=== PATIENT | male | born 1980 | race Caucasian/White ===

== ENCOUNTER 2020-06-04 12:42 | Emergency (ER) | payer OTHER, SELFPAY ==
[2020-06-04] VITALS (10 sets, daily range): BP systolic 127–152; BP diastolic 67–104; PULSE 73–95; RESP 15–16; TEMP 37.3; O2SAT 97–99; BMI 34.8
[2020-06-04 12:58] LABS: Add Manual Diff / Slide Review NO; Basophils Absolute Auto 100 /uL (0-100); Basophils Percent Auto 0.8 % (0-2); Eosinophils Absolute Auto 300 /uL (0-450); Eosinophils Percent Auto 2.3 % (2-4); Hematocrit 46.1 % (41-53); Hemoglobin 15.8 g/dL (13.5-17.5); Lymphocytes Absolute Auto 1900 /uL (1100-4500); Lymphocytes Percent Auto 16.4 % (25-40); Mean Corpuscular HGB Conc 34.3 % (30-36); Mean Corpuscular Hemoglobin 30.5 PG (26-34); Mean Corpuscular Volume 88.9 fL (80-100); Monocytes Absolute Auto 1200 /uL (0-900); Monocytes Percent Auto 10.9 % (3-14); Neutrophils Absolute Auto 7900 /uL (1500-7000); Neutrophils Percent Auto 69.6 % (50-75); Platelet Count 349 X10^3/uL (150-400); Red Blood Cell Count 5.19 X10^6/uL (4.5-5.9); Red Cell Distribution Width 13.4 % (11.6-14.8); White Blood Cell Count 11.3 X10^3/uL (4.5-11.0)
[2020-06-04 13:05] LABS: Prothrombin Time 11.1 SECONDS (10.1-12.7)
[2020-06-04 13:07] LABS: PTT Partial Thromboplastin Tim 36 SECONDS (26.4-36.2)
[2020-06-04 13:09] LABS: Alanine Aminotransferase 38 IU/L (<50); Albumin 4.8 g/dL (3.5-5.0); Albumin Globulin Ratio 1.3 (1.0-2.8); Alkaline Phosphatase 83 U/L (38-126); Aspartate Aminotransferase 24 IU/L (17-59); BUN Creatinine Ratio 13.7 (6-22); Bilirubin Total 0.8 mg/dL (0.2-1.3); Blood Urea Nitrogen 10 mg/dL (9-20); Calcium 9.7 mg/dL (8.4-10.2); Carbon Dioxide 25 mmol/L (22-32); Chloride 103 mmol/L (98-107); Estimated Glomerular Filt Rate > 60.0 mL/min (>60); Globulin 3.6 g/dL (1.7-4.1); Glucose 99 mg/dL (70-100); HEMOLYSIS < 15 (0-50); Lipase 1122 U/L (23-300); Potassium 4.1 mmol/L (3.4-5.1); Sodium 138 mmol/L (137-145); Total Protein 8.4 g/dL (6.3-8.2)
--- NOTE | 2020-06-04 13:12 | ED.ABDPAIN ---
HPI - Abdominal Pain <CHEY Montesinos - Last Filed: 06/04/20 16:00> General Chief Complaint: Abdominal Pain Stated Complaint: lower left abdominal pain Time Seen by Provider: 06/04/20 12:43 Source: patient Mode of arrival: Ambulatory Limitations: no limitations History of Present Illness HPI narrative: The patient is a 39-year-old male current marijuana user with history of drinking to excess but having for years,appendectomy, chronic low back pain ocular migraine who presents with a chief complaint of left lower abdominal pain since last night. He states it started yesterday, no fevers, nausea vomiting and retching. No chest pain or shortness of breath. States his last bowel movement was 1 hour prior to arrival and normal.. No dysuria urgency or frequency. No testicular pain. Presents as a referral from the walk-in clinic. Related Data Previous Rx's Medication Instructions Recorded ciprofloxacin HCl 500 mg PO BID #20 tab 06/04/20 hydrocodone-acetaminophen [[place]] 1 tab PO Q4-6H PRN #10 tab 06/04/20 metronidazole 500 mg PO TID 10 Days #30 tab 06/04/20 ondansetron 4 mg PO Q6H PRN #20 tab 06/04/20 Allergies Allergy/AdvReac Type Severity Reaction Status Date / Time banana [BANANA] Allergy Mild VOMITING Verified 06/04/20 12:24 VIOLENTLY Review of Systems <MARC Montesinos - Last Filed: 06/04/20 16:00> Review of Systems Narrative: GENERAL: Denies chills, fatigue, malaise, fever, sweats. HEENT: Denies sinus pain, ear pain, sore throat, difficulty swallowing, dizziness. RESPIRATORY: Denies dyspnea, cough, wheezing, hemoptysis, sputum. CARDIOVASCULAR: Denies chest pain, palpitations, orthopnea, edema, GASTROINTESTINAL: See HPI : Denies dysuria, frequency, incontinence, hematuria, urinary retention. MUSCULOSKELETAL: denies weakness, joint pain, or bony pain SKIN: Denies rash, skin lesions, or other NEUROLOGIC: Denies weakness, headache, numbness, change in speech, confusion, seizures, incoordination. PSYCHIATRIC: No concerning psychosocial issues. 12 point review of systems is negative except for those stated above Patient History <CHEY Montesinos - Last Filed: 06/04/20 16:00> Social History Smoking Status: Unknown if ever smoked Smoking Status: Unknown if ever smoked alcohol intake frequency: holidays/special occasions only Substance Use Type: marijuana Exam <CHEY Montesinos - Last Filed: 06/04/20 16:00> Narrative Exam Narrative: GENERAL: This is a well-nourished, well-developed patient, no acute distress HEAD: Atraumatic. Normocephalic. No temporal or scalp tenderness. EYES: Pupils equal round and reactive. Extraocular motions intact. No scleral icterus. No injection or drainage. ENT: Nose without bleeding, purulent drainage or septal hematoma. Throat without erythema, tonsillar hypertrophy or exudate. Uvula midline. Airway patent. NECK: Trachea midline. No JVD or lymphadenopathy. Supple, nontender, no meningeal signs. CARDIOVASCULAR: Regular rate and rhythm without murmurs, gallops, or rubs. RESPIRATORY: Clear to auscultation. Breath sounds equal bilaterally. No wheezes, rales, or rhonchi. GASTROINTESTINAL: Abdomen soft, tenderness to left lower quadrant palpation, nondistended. No hepato-splenomegaly, or palpable masses. No guarding. Active bowel sounds all 4 quadrants. Negative Daniels sign. EXTREMITIES: No clubbing, cyanosis, or edema. No joint tenderness, effusion, or edema noted. BACK: Nontender without deformity or crepitance. No flank tenderness. NEURO: AOx3. SKIN: No rash or erythema on visible skin Initial Vital Signs Initial Vital Signs: Vital Signs Temperature 99.2 F 06/04/20 12:44 Pulse Rate 78 06/04/20 12:44 Respiratory Rate 15 06/04/20 12:44 Blood Pressure 152/104 H 06/04/20 12:44 Pulse Oximetry 97 06/04/20 12:44 <Natalee Nair DO - Last Filed: 06/09/20 07:22> Initial Vital Signs Initial Vital Signs: Vital Signs Temperature 99.2 F 06/04/20 12:44 Pulse Rate 78 06/04/20 12:44 Respiratory Rate 15 06/04/20 12:44 Blood Pressure 152/104 H 06/04/20 12:44 Pulse Oximetry 97 06/04/20 12:44 Scores <MARC MontesinosBC - Last Filed: 06/04/20 16:00> GCS Nicanor coma scale eye opening: Spontaneous [place] coma scale verbal response: Orientated [place] coma scale motor response: Obey commands [place] coma scale total score: 15 Course <Inez MARC HawkinsBC - Last Filed: 06/04/20 16:00> Orders Ordered: Discontinued Medications Ciprofloxacin (Cipro) 500 mg PO NOW ONE Stop: 06/04/20 14:35 Last Admin: 06/04/20 14:42 Dose: 500 mg Documented by: JED Sodium Chloride (Normal Saline 0.9%) 1,000 mls @ 1,000 mls/hr IV BOLUS ONE Stop: 06/04/20 13:57 Last Infusion: 06/04/20 14:52 Dose: 0 mls/hr Documented by: Admin: 06/04/20 13:17 Dose: 1,000 mls/hr Documented by: SCANAPO Sodium Chloride (Normal Saline 0.9%) 1,000 mls @ 1,000 mls/hr IV BOLUS ONE Stop: 06/04/20 15:00 Last Infusion: 06/04/20 15:27 Dose: 0 mls/hr Documented by: Admin: 06/04/20 14:10 Dose: 1,000 mls/hr Documented by: JED Sodium Chloride (Normal Saline 0.9%) 1,000 mls @ 250 mls/hr IV CONT JORDI Metronidazole (Metronidazole) 500 mg PO NOW ONE Stop: 06/04/20 14:35 Last Admin: 06/04/20 14:42 Dose: 500 mg Documented by: JED Ondansetron HCl (Zofran) 4 mg IV NOW ONE Stop: 06/04/20 14:35 Last Admin: 06/04/20 14:42 Dose: 4 mg Documented by: JED Vital Signs Vital signs: Vital Signs - 8 hr 06/04/20 12:44 06/04/20 12:46 06/04/20 13:00 Temperature 99.2 F Pulse Rate 78 75 82 Respiratory Rate 15 Blood Pressure 152/104 H 152/104 H 152/98 H Pulse Oximetry 97 98 97 06/04/20 13:30 06/04/20 14:00 06/04/20 14:30 Temperature Pulse Rate 87 78 80 Respiratory Rate Blood Pressure 133/83 131/87 143/87 H Pulse Oximetry 98 98 99 06/04/20 15:00 06/04/20 15:01 06/04/20 15:30 Temperature Pulse Rate 73 78 95 H Respiratory Rate Blood Pressure 131/67 127/84 Pulse Oximetry 99 98 99 06/04/20 15:35 Temperature Pulse Rate Respiratory Rate 16 Blood Pressure Pulse Oximetry <Natalee Nair, - Last Filed: 06/09/20 07:22> Orders Ordered: Discontinued Medications Ciprofloxacin (Cipro) 500 mg PO NOW ONE Stop: 06/04/20 14:35 Last Admin: 06/04/20 14:42 Dose: 500 mg Documented by: JED Sodium Chloride (Normal Saline 0.9%) 1,000 mls @ 1,000 mls/hr IV BOLUS ONE Stop: 06/04/20 13:57 Last Infusion: 06/04/20 14:52 Dose: 0 mls/hr Documented by: Admin: 06/04/20 13:17 Dose: 1,000 mls/hr Documented by: GERRYAPO Sodium Chloride (Normal Saline 0.9%) 1,000 mls @ 1,000 mls/hr IV BOLUS ONE Stop: 06/04/20 15:00 Last Infusion: 06/04/20 15:27 Dose: 0 mls/hr Documented by: Admin: 06/04/20 14:10 Dose: 1,000 mls/hr Documented by: JED Sodium Chloride (Normal Saline 0.9%) 1,000 mls @ 250 mls/hr IV CONT JORDI Metronidazole (Metronidazole) 500 mg PO NOW ONE Stop: 06/04/20 14:35 Last Admin: 06/04/20 14:42 Dose: 500 mg Documented by: JED Ondansetron HCl (Zofran) 4 mg IV NOW ONE Stop: 06/04/20 14:35 Last Admin: 06/04/20 14:42 Dose: 4 mg Documented by: JED Vital Signs Vital signs: Vital Signs - 8 hr 06/04/20 12:44 06/04/20 12:46 06/04/20 13:00 Temperature 99.2 F Pulse Rate 78 75 82 Respiratory Rate 15 Blood Pressure 152/104 H 152/104 H 152/98 H Pulse Oximetry 97 98 97 06/04/20 13:30 06/04/20 14:00 06/04/20 14:30 Temperature Pulse Rate 87 78 80 Respiratory Rate Blood Pressure 133/83 131/87 143/87 H Pulse Oximetry 98 98 99 06/04/20 15:00 06/04/20 15:01 06/04/20 15:30 Temperature Pulse Rate 73 78 95 H Respiratory Rate Blood Pressure 131/67 127/84 Pulse Oximetry 99 98 99 06/04/20 15:35 Temperature Pulse Rate Respiratory Rate 16 Blood Pressure Pulse Oximetry MDM - Abdominal Pain <FRED Montesinos-BC - Last Filed: 06/04/20 16:00> Lab Data Attestation: I reviewed the patient's lab results. Result diagrams: 06/04/20 12:48 06/04/20 12:48 Labs: Lab Results 06/04/20 06/04/20 06/04/20 Range/Units 12:48 12:48 12:48 WBC 11.3 H (4.5-11.0) X10^3/uL RBC 5.19 (4.5-5.9) X10^6/uL Hgb 15.8 (13.5-17.5) g/dL Hct 46.1 (41-53) % MCV 88.9 (80-100) fL MCH 30.5 (26-34) PG MCHC 34.3 (30-36) % RDW 13.4 (11.6-14.8) % Plt Count 349 (150-400) X10^3/uL Neut % (Auto) 69.6 (50-75) % Lymph % (Auto) 16.4 L (25-40) % Mclean % (Auto) 10.9 (3-14) % Eos % (Auto) 2.3 (2-4) % Baso % (Auto) 0.8 (0-2) % Neut # (Auto) 7900 H (2048-8602) /uL Lymph # (Auto) 1900 (2943-5160) /uL Mclean # (Auto) 1200 H (0-900) /uL Eos # (Auto) 300 (0-450) /uL Baso # (Auto) 100 (0-100) /uL PT 11.1 (10.1-12.7) SECONDS INR 1.0 (0.9-1.3) APTT 36 (26.4-36.2) SECONDS Sodium 138 (137-145) mmol/L Potassium 4.1 (3.4-5.1) mmol/L Chloride 103 (98-107) mmol/L Carbon Dioxide 25 (22-32) mmol/L BUN 10 (9-20) mg/dL Creatinine 0.73 (0.66-1.25) mg/dL Estimated GFR > 60.0 (>60) mL/min BUN/Creatinine Ratio 13.7 (6-22) Glucose 99 (70-100) mg/dL Calcium 9.7 (8.4-10.2) mg/dL Total Bilirubin 0.8 (0.2-1.3) mg/dL AST 24 (17-59) IU/L ALT 38 (<50) IU/L Alkaline Phosphatase 83 (38-126) U/L Total Protein 8.4 H (6.3-8.2) g/dL Albumin 4.8 (3.5-5.0) g/dL Globulin 3.6 (1.7-4.1) g/dL Albumin/Globulin Ratio 1.3 (1.0-2.8) Lipase 1122 H (23-300) U/L COVID-19 PCR (Negative) 06/04/20 Range/Units 14:20 WBC (4.5-11.0) X10^3/uL RBC (4.5-5.9) X10^6/uL Hgb (13.5-17.5) g/dL Hct (41-53) % MCV (80-100) fL MCH (26-34) PG MCHC (30-36) % RDW (11.6-14.8) % Plt Count (150-400) X10^3/uL Neut % (Auto) (50-75) % Lymph % (Auto) (25-40) % Mclean % (Auto) (3-14) % Eos % (Auto) (2-4) % Baso % (Auto) (0-2) % Neut # (Auto) (3169-9003) /uL Lymph # (Auto) (1260-0441) /uL Mclean # (Auto) (0-900) /uL Eos # (Auto) (0-450) /uL Baso # (Auto) (0-100) /uL PT (10.1-12.7) SECONDS INR (0.9-1.3) APTT (26.4-36.2) SECONDS Sodium (137-145) mmol/L Potassium (3.4-5.1) mmol/L Chloride (98-107) mmol/L Carbon Dioxide (22-32) mmol/L BUN (9-20) mg/dL Creatinine (0.66-1.25) mg/dL Estimated GFR (>60) mL/min BUN/Creatinine Ratio (6-22) Glucose (70-100) mg/dL Calcium (8.4-10.2) mg/dL Total Bilirubin (0.2-1.3) mg/dL AST (17-59) IU/L ALT (<50) IU/L Alkaline Phosphatase (38-126) U/L Total Protein (6.3-8.2) g/dL Albumin (3.5-5.0) g/dL Globulin (1.7-4.1) g/dL Albumin/Globulin Ratio (1.0-2.8) Lipase (23-300) U/L COVID-19 PCR Negative (Negative) Point of care testing: Urine Dip Bedside Urine Glucose Negative Bedside Urine Bilirubin - Negative Bedside Urine Ketone ++ 40 Urine Specific [place] 1.015 Bedside Urine Occult Blood - Negative Bedside Urine pH 5.5 Bedside Urine Protein - Negative Bedside Urine Urobilinogen - Negative Bedside Urine Nitrite - Negative Bedside Urine Leukocytes - Negative Esterase Imaging Data CT scan - abdomen/pelvis: Radiologist's Impression: [address] [place] [id number] Scan Report Signed Patient: Wojciech Eaton RMR#: [id number] : 1980Acct:[id number] Age/Sex: 39 / MDate of Service: 06/04/20 Loc: ED Accession Number: [id number] Procedure: CT abdomen pelvis w con Ordering Provider: Inez Hawkins- PROCEDURE: CT ABDOMEN PELVIS W CON INDICATIONS: llq pain, elevated lipase TECHNIQUE: After the administration of intravenous contrast, 5 mm thick sections acquired from the diaphragm to the symphysis. 5 mm coronal and sagittal reformats were acquired. For radiation dose reduction, the following was used: automated exposure control, adjustment of mA and/or kV according to patient size. COMPARISON: [facility], CT, ABDOMEN/PELVIS WITH CONTRAST, 12/11/2010, 4:52. FINDINGS: Image quality: Excellent. ABDOMEN: Lung bases: Lung bases are clear. Heart size is normal. Solid organs: Liver is normal in size and enhancement. Gallbladder appears normal . Biliary system is non dilated. Pancreas enhances normally. Spleen is normal in size and enhancement. No adrenal nodules. Kidneys demonstrate normal size and enhancement, without hydronephrosis. Peritoneum and bowel: Bowel loops demonstrate normal wall thickness and caliber. No free fluid or air. Nodes and vessels: No retroperitoneal or mesenteric adenopathy by size criteria. Aorta and inferior vena cava are normal in size. Miscellaneous: No ventral hernias. PELVIS: Genitourinary: Bladder wall thickness is normal. Miscellaneous: No inguinal hernias or adenopathy. There is acute diverticulitis involving the junction of the descending colon as it transitions to the sigmoid colon, without. Diverticular abscess. Bones: No suspicious bony lesions. No vertebral body compression fractures. IMPRESSION: Acute diverticulitis at the left lower quadrant, without evidence of Talia diverticular abscess formation. Dictated by: Wojciech Zaragoza M.D. on 06/04/2020 at 13:54 Approved by: Wojciech Zaragoza M.D. on 06/04/2020 at 13:56 MDM Narrative Medical decision making narrative: The patient is a 39-year-old male who presents the chief complaint of left lower quadrant pain. His work is grossly normal other than slight leukocytosis and an elevated lipase at over 1100. This is over 3 times the normal limit for lipase indicating the possibility of pancreatitis. CT abdomen pelvis shows diverticulitis with no perforation. Given the combination of the patient's diverticulitis and pancreatitis, I did speak with Dr. Chowdary regarding possibility of admitting the patient. However Dr. Chowdary states that the patient should be able to go home as lipase is nonspecific in the patient's pancreas looked okay on CT. I discussed this at length with the patient that he has strict return precautions the emergency department if you cannot keep down fluids, his medications etcetera. He is okay with this plan, is able to tolerate p.o. Cipro and Flagyl prior to discharge. I discussed at length starting with clear liquid diet, pushing lots of liquids etcetera. Discussed very strict return precautions to the emergency department for any acute concerns as well as the importance of follow-up with primary care provider. Patient was given contact information [facility] health career resource specialist, to help get a PCP. The patient was able to tolerate p.o. fluids in the emergency department. Patient has no questions or concerns upon discharge and states understanding of return precautions as well as follow-up care. He was given a work note for several days off, and strict instructions to come back for any acute concerns. I did discuss not drinking alcohol with his antibiotics during treatment. <Natalee Nair, DO - Last Filed: 06/09/20 07:22> Lab Data Labs: Lab Results 06/04/20 06/04/20 06/04/20 Range/Units 12:48 12:48 12:48 WBC 11.3 H (4.5-11.0) X10^3/uL RBC 5.19 (4.5-5.9) X10^6/uL Hgb 15.8 (13.5-17.5) g/dL Hct 46.1 (41-53) % MCV 88.9 (80-100) fL MCH 30.5 (26-34) PG MCHC 34.3 (30-36) % RDW 13.4 (11.6-14.8) % Plt Count 349 (150-400) X10^3/uL Neut % (Auto) 69.6 (50-75) % Lymph % (Auto) 16.4 L (25-40) % Mclean % (Auto) 10.9 (3-14) % Eos % (Auto) 2.3 (2-4) % Baso % (Auto) 0.8 (0-2) % Neut # (Auto) 7900 H (8737-1016) /uL Lymph # (Auto) 1900 (1630-3262) /uL Mclean # (Auto) 1200 H (0-900) /uL Eos # (Auto) 300 (0-450) /uL Baso # (Auto) 100 (0-100) /uL PT 11.1 (10.1-12.7) SECONDS INR 1.0 (0.9-1.3) APTT 36 (26.4-36.2) SECONDS Sodium 138 (137-145) mmol/L Potassium 4.1 (3.4-5.1) mmol/L Chloride 103 (98-107) mmol/L Carbon Dioxide 25 (22-32) mmol/L BUN 10 (9-20) mg/dL Creatinine 0.73 (0.66-1.25) mg/dL Estimated GFR > 60.0 (>60) mL/min BUN/Creatinine Ratio 13.7 (6-22) Glucose 99 (70-100) mg/dL Calcium 9.7 (8.4-10.2) mg/dL Total Bilirubin 0.8 (0.2-1.3) mg/dL AST 24 (17-59) IU/L ALT 38 (<50) IU/L Alkaline Phosphatase 83 (38-126) U/L Total Protein 8.4 H (6.3-8.2) g/dL Albumin 4.8 (3.5-5.0) g/dL Globulin 3.6 (1.7-4.1) g/dL Albumin/Globulin Ratio 1.3 (1.0-2.8) Lipase 1122 H (23-300) U/L COVID-19 PCR (Negative) 06/04/20 Range/Units 14:20 WBC (4.5-11.0) X10^3/uL RBC (4.5-5.9) X10^6/uL Hgb (13.5-17.5) g/dL Hct (41-53) % MCV (80-100) fL MCH (26-34) PG MCHC (30-36) % RDW (11.6-14.8) % Plt Count (150-400) X10^3/uL Neut % (Auto) (50-75) % Lymph % (Auto) (25-40) % Mclean % (Auto) (3-14) % Eos % (Auto) (2-4) % Baso % (Auto) (0-2) % Neut # (Auto) (8489-6532) /uL Lymph # (Auto) (5289-8381) /uL Mclean # (Auto) (0-900) /uL Eos # (Auto) (0-450) /uL Baso # (Auto) (0-100) /uL PT (10.1-12.7) SECONDS INR (0.9-1.3) APTT (26.4-36.2) SECONDS Sodium (137-145) mmol/L Potassium (3.4-5.1) mmol/L Chloride (98-107) mmol/L Carbon Dioxide (22-32) mmol/L BUN (9-20) mg/dL Creatinine (0.66-1.25) mg/dL Estimated GFR (>60) mL/min BUN/Creatinine Ratio (6-22) Glucose (70-100) mg/dL Calcium (8.4-10.2) mg/dL Total Bilirubin (0.2-1.3) mg/dL AST (17-59) IU/L ALT (<50) IU/L Alkaline Phosphatase (38-126) U/L Total Protein (6.3-8.2) g/dL Albumin (3.5-5.0) g/dL Globulin (1.7-4.1) g/dL Albumin/Globulin Ratio (1.0-2.8) Lipase (23-300) U/L COVID-19 PCR Negative (Negative) Point of care testing: Urine Dip Bedside Urine Glucose Negative Bedside Urine Bilirubin - Negative Bedside Urine Ketone ++ 40 Urine Specific [place] 1.015 Bedside Urine Occult Blood - Negative Bedside Urine pH 5.5 Bedside Urine Protein - Negative Bedside Urine Urobilinogen - Negative Bedside Urine Nitrite - Negative Bedside Urine Leukocytes - Negative Esterase Discharge Plan Departure Patient Disposition: Home Clinical Impression: Diverticulitis Pancreatitis Qualifiers: Chronicity: acute Pancreatitis type: other Acute pancreatitis complication: unspecified Qualified Code(s): K85.80 - Other acute pancreatitis without necrosis or infection Discharge Date/Time: 06/04/20 15:45 Instructions: Pancreatitis (Alternative Therapy), DI for Pancreatitis, DI for Diverticulitis Activity Restrictions/Additional Instructions: Thank you for trusting us with your care today. As discussed your imaging and lab work indicates both diverticulitis and pancreatitis. As discussed, please have a very low threshold of coming back to the emergency department. Please come back to the ER if you cannot keep down fluids or your medications. Please come back to the ER if you feel like you are getting worse. I sent for prescriptions to [facility] in [place]. This included 2 different antibiotics as well as pain medicine and nausea medicine. I suggest taking a probiotic with the antibiotics. I have given you a prescription of a narcotic for pain. Be aware that this can be constipating and sedating. I encouraged taking with a stool softener, pushing fluids and fiber. Do not take and drive, operate heavy machinery, etc. Do not combine it with any other sedating substances such as alcohol. The combination of narcotics and alcohol and/or other sedatives can be lethal. As discussed please follow-up with primary care provider in the next few days. I have given you contact information [facility] career resource specialist. They can help you identify primary care provider I Have given you a note for work. As discussed please do not drink alcohol with the antibiotics. This can make you violently ill. As discussed please follow-up with primary care provider come back to the emergency department for any acute concerns Prescriptions: New ciprofloxacin HCl 500 mg tablet 500 mg PO BID Qty: 20 RF: 0 metronidazole 500 mg tablet 500 mg PO TID 10 Days Qty: 30 RF: 0 ondansetron 4 mg tablet,disintegrating 4 mg PO Q6H PRN (Reason: nausea and vomiting) Qty: 20 RF: 0 hydrocodone-acetaminophen [[place]] 5-325 mg tablet 1 tab PO Q4-6H PRN (Reason: pain) Qty: 10 RF: 0 Referrals: [facility] [Outside] Miscellaneous,Doctor, [Primary Care Provider] - Stand Alone Forms: Work Release Note <Natalee Nair DO - Last Filed: 06/09/20 07:22> Cosign ED Attending Claudette Attestation: I was immediately available in the department for consultation. Documentation has been reviewed. I agree with assessment and plan.
[2020-06-04] MEDS: SODIUM CHLORIDE 0.9% 1,000 ML 1000 ML IV ×2 (13:17→14:10)
--- NOTE | 2020-06-04 13:18 | DI.CT.S_ITS ---
PROCEDURE: CT ABDOMEN PELVIS W CON INDICATIONS: llq pain, elevated lipase TECHNIQUE: After the administration of intravenous contrast, 5 mm thick sections acquired from the diaphragm to the symphysis. 5 mm coronal and sagittal reformats were acquired. For radiation dose reduction, the following was used: automated exposure control, adjustment of mA and/or kV according to patient size. COMPARISON: [facility], CT, ABDOMEN/PELVIS WITH CONTRAST, 12/11/2010, 4:52. FINDINGS: Image quality: Excellent. ABDOMEN: Lung bases: Lung bases are clear. Heart size is normal. Solid organs: Liver is normal in size and enhancement. Gallbladder appears normal . Biliary system is non dilated. Pancreas enhances normally. Spleen is normal in size and enhancement. No adrenal nodules. Kidneys demonstrate normal size and enhancement, without hydronephrosis. Peritoneum and bowel: Bowel loops demonstrate normal wall thickness and caliber. No free fluid or air. Nodes and vessels: No retroperitoneal or mesenteric adenopathy by size criteria. Aorta and inferior vena cava are normal in size. Miscellaneous: No ventral hernias. PELVIS: Genitourinary: Bladder wall thickness is normal. Miscellaneous: No inguinal hernias or adenopathy. There is acute diverticulitis involving the junction of the descending colon as it transitions to the sigmoid colon, without. Diverticular abscess. Bones: No suspicious bony lesions. No vertebral body compression fractures. IMPRESSION: Acute diverticulitis at the left lower quadrant, without evidence of Talia diverticular abscess formation. Dictated by: Wojciech Zaragoza M.D. on 06/04/2020 at 13:54 Approved by: Wojciech Zaragoza M.D. on 06/04/2020 at 13:56
[2020-06-04] MEDS: CIPROFLOXACIN 500 MG TABLET PO (14:42)
[2020-06-04] MEDS: ONDANSETRON 4 MG/2 ML INJ IV (14:42)
[2020-06-04] MEDS: metroNIDAZOLE 250 MG TABLET 500 MG PO (14:42)
[2020-06-04 15:19] LABS: COVID19 -Nasal RAPID Negative (Negative)
== END 2020-06-04 15:45 | disposition home or self-care (01) ==
PROVIDERS: Emergency Provider Nurse Practitioner Family
DX: K57.92 Diverticulitis of intestine, part unspecified, without perforation or abscess without bleeding (principal); K85.80 Other acute pancreatitis without necrosis or infection
CPT/HCPCS: 36415; 74177; 80053; 81003; 83690; 85025; 85610; 85730; 87635; 96361; 96374; 99284; J2405

== ENCOUNTER 2020-11-06 05:50 | Emergency (ER) | payer OTHER, SELFPAY ==
[2020-11-06 05:59] VITALS: BP 132/84; PULSE 87; RESP 23; TEMP 36.5; O2SAT 97; BMI 34.9
--- NOTE | 2020-11-06 06:00 | DI.RAD.S_ITS ---
PROCEDURE: XR CHEST 2V INDICATIONS: right upper back pain, hurts to breathe TECHNIQUE: 2 views of the chest were acquired. COMPARISON: [facility], CT, CT ABDOMEN PELVIS W CON, 06/04/2020, 13:34. FINDINGS: Surgical changes and devices: None. Lungs and pleura: Lungs are clear. No pleural effusions or pneumothorax. Mediastinum: Mediastinal contours are normal. Heart size is normal. Bones and chest wall: No suspicious bony abnormalities. Soft tissues appear unremarkable. IMPRESSION: No acute cardiopulmonary disease. Dictated by: Terri Yarbrough M.D. on 11/06/2020 at 8:13 Approved by: Terri Yarbrough M.D. on 11/06/2020 at 8:14
--- NOTE | 2020-11-06 06:02 | ED_ITS ---
HPI - Back Pain/Injury General Chief Complaint: Back Pain/Injury Stated Complaint: SEVERE PAIN IN BACK Time Seen by Provider: 11/06/20 05:50 Source: patient Mode of arrival: Ambulatory Limitations: no limitations History of Present Illness HPI Narrative: 40-year-old male, smoker of marijuana presents with family friend and the chief complaint of severe sharp and stabbing pain in his right upper back worsening over the past few days. His pain is worse with motion, deep breath, or use of his R arm. He denies any radiation of the pain. He denies any specific injury but states he has been working harder than normal, lifting heavy objects and he is right handed. He denies any shortness of breath, fever or chills. He states he has no history of IV drug abuse and does not use blood thinners. He has taken a few doses of Motrin at home but nothing else. MD Complaint: back pain Onset (ago): day(s) Duration: constant Similar Symptoms Previously: No Location: thoracic spine Severity: severe Quality: sharp Radiation: none Relieving factors: immobilization Exacerbating factors: movement and deep breaths Associated symptoms: denies other symptoms Related Data Previous Rx's Medication Instructions Recorded meclizine 25 mg tablet 25 mg PO TID PRN #30 tab 08/23/20 cyclobenzaprine 10 mg PO TID PRN #14 tab 11/06/20 doxycycline hyclate 100 mg PO BID #20 tab 11/06/20 ketorolac 10 mg PO Q6H PRN #14 tab 11/06/20 lidocaine [Lidoderm] 1 patch TOP DAILY #15 each 11/06/20 Allergies Allergy/AdvReac Type Severity Reaction Status Date / Time banana [BANANA] Allergy Mild VOMITING Verified 08/23/20 13:44 VIOLENTLY Review of Systems Constitutional Constitutional: Denies chills, Denies fatigue, Denies fever(s), Denies frequent falls, Denies lethargy and Denies weakness Eyes Eyes: Denies change in vision, Denies eye discharge, Denies irritation and Denies loss of vision ENT Ears, Nose, Mouth, and Throat: Denies change in voice, Denies dizziness, Denies neck pain, Denies sore throat and Denies throat swelling Cardiovascular Cardiovascular: Denies chest pain, Denies irregular heart rhythm, Denies lightheadedness, Denies palpitations, Denies dyspnea, Denies dyspnea on exertion and Denies orthopnea Respiratory Respiratory: Denies cough, Denies dyspnea, Denies dyspnea on exertion and Denies wheezing Gastrointestinal Gastrointestinal: Denies abdominal pain, Denies change in bowel habits, Denies diarrhea, Denies nausea and Denies vomiting Musculoskeletal Musculoskeletal: Reports back pain, Denies neck pain and Denies numbness Integumentary/Breasts Skin/Breast: Denies pruritus, Denies erythema, Denies rash and Denies wounds Neurologic Neurologic: Denies behavioral changes, Denies confusion, Denies dizziness, Denies frequent falls, Denies loss of vision, Denies numbness and Denies weakness Psychiatric Psychiatric: Denies anxiety, Denies behavioral changes, Denies confusion, Denies depression, Denies homicidal ideation and Denies suicidal ideation Endocrine Endocrine: Denies fatigue, Denies flushing and Denies palpitations Hematologic/Lymphatic Hematologic/Lymphatic: Denies easy bruising Allergic/Immunologic Allergic/Immunologic: Denies urticaria, Denies throat swelling and Denies wheezing Patient History Medical History Finger laceration Social History Smoking Status: Unknown if ever smoked Smoking Status: Unknown if ever smoked alcohol intake frequency: holidays/special occasions only Substance Use Type: marijuana Exam Narrative Exam Narrative: GEN: AOx3 and in mild distress, obviously hurting, self splinting EYES: Pupils are equal, round, and reactive to light and accommodation. Extraoccular muscles are intact bilaterally. There is no subconjunctival hemorrhage or exudate. CHEST: Lungs are clear to auscultation bilaterally and free of wheezes, rales, or rhonchi. Heart rate is regular rhythm, there are no murmurs, clicks, rubs, or gallops. There is no chest wall tenderness. ABD: Abdomen is soft and nontender. There is no guarding or rebound. Bowel sounds are normal in all 4 quadrants. There is no mass or organomegaly. BACK: Reproducible pain in the right upper back he was and 3 lateral to the spine and just inferior to the scapula. Palpable spasm. No midline bony tenderness or step-offs. No crepitance EXT: Full painless ROM of all extremities with no loss of sensation or strength. SKIN: Warm, pink, and dry. No erythema or rash Initial Vital Signs Initial Vital Signs: Vital Signs Temperature 97.7 F 11/06/20 05:59 Pulse Rate 87 11/06/20 05:59 Respiratory Rate 23 11/06/20 05:59 Blood Pressure 132/84 11/06/20 05:59 Pulse Oximetry 97 11/06/20 05:59 Course Orders Ordered: ED Orders 11/06/20 06:00 XR chest 2V Stat Discontinued Medications Hydrocodone Bitart/Acetaminophen (Hydrocodone/Acet 5/325 Prepack) 1 bottle MISC SEEINSTR ONE Stop: 11/06/20 06:36 Last Admin: 11/06/20 06:46 Dose: 1 bottle Documented by: Cyclobenzaprine HCl (Cyclobenzaprine 10 Mg Prepack) 1 bottle MISC SEEINSTR ONE Stop: 11/06/20 06:36 Last Admin: 11/06/20 06:46 Dose: 1 bottle Documented by: Ketorolac Tromethamine (Ketorolac 60 Mg/2 Ml Vial) 30 mg IM NOW ONE Stop: 11/06/20 06:01 Last Admin: 11/06/20 06:08 Dose: 30 mg Documented by: Lidocaine (Lidocaine Patch 1 Each Adh..Patch) 1 each TOP NOW ONE Stop: 11/06/20 06:01 Last Admin: 11/06/20 06:08 Dose: 1 each Documented by: Vital Signs Vital signs: Vital Signs - 8 hr 11/06/20 05:59 Temperature 97.7 F Pulse Rate 87 Respiratory Rate 23 Blood Pressure 132/84 Pulse Oximetry 97 MDM - Back Pain/Injury Imaging Data Chest x-ray: Radiologist's Impression: Prominence of pulmonary interstitium with focal groundglass opacity in RLLL, possible pneumonia Discharge Plan Departure Patient Disposition: Home Clinical Impression: Thoracic back pain Qualifiers: Chronicity: acute Back pain laterality: right Qualified Code(s): M54.6 - Pain in thoracic spine Instructions: DI for Back Spasm Activity Restrictions/Additional Instructions: *You have been diagnosed with [thoracic strain and spasm, chest Xray as read by the radiologist mentions possibly small amount of pneumonia] *What to do: *Take medications as directed: prescriptions sent to [facility] *Follow up with your primary care provider in 2-3 days, call for an appointment. Let them know you were seen in the Emergency Department and that we ask that you be seen in follow up *Return to ER if you should have any new, worsening or concerning symptoms You have been prescribed narcotic medications. While on these medications you cannot drive or operate heavy machinery. Additionally you cannot sign legal documents or perform any duties such as this. 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 Please understand that we cannot provide further refills of narcotics or controlled substances through the ED and your pain management will need to be through your Primary Care Provider Prescriptions: New cyclobenzaprine 10 mg tablet 10 mg PO TID PRN (Reason: muscle spasm) Qty: 14 RF: 0 ketorolac 10 mg tablet 10 mg PO Q6H PRN (Reason: pain) Qty: 14 RF: 0 lidocaine [Lidoderm] 5 % adhesive patch,medicated 1 patch TOP DAILY Qty: 15 RF: 0 doxycycline hyclate 100 mg tablet 100 mg PO BID Qty: 20 RF: 0 No Action meclizine 25 mg tablet 25 mg PO TID PRN (Reason: dizziness) Qty: 30 RF: 0 Referrals: Miscellaneous,Doctor, MD [Primary Care Provider] -
[2020-11-06] MEDS: LIDOCAINE PATCH 1 EACH ADH..PATCH TOP (06:08)
[2020-11-06] MEDS: KETOROLAC 60 MG/2 ML VIAL 30 MG IM (06:08)
[2020-11-06] MEDS: CYCLOBENZAPRINE 10 MG PREPACK 1 BOTTLE MISC (06:46)
[2020-11-06] MEDS: HYDROCODONE/ACET 5/325 PREPACK 1 BOTTLE MISC (06:46)
== END 2020-11-06 06:53 | disposition home or self-care (01) ==
PROVIDERS: Emergency Provider Emergency Medicine
DX: M54.6 Pain in thoracic spine (principal)
CPT/HCPCS: 71046; 96372; 99283; J1885

== ENCOUNTER 2021-05-21 12:18 | Emergency (ER) | payer OTHER, SELFPAY ==
[2021-05-21 12:38] VITALS: BP 142/93; PULSE 86; RESP 22; TEMP 36.9; O2SAT 97; BMI 34.9
[2021-05-21 16:38] VITALS: BP 117/81; PULSE 86; RESP 16; TEMP 36.2; O2SAT 100
[2021-05-21] MEDS: KETOROLAC 30 MG/ML VIAL IM (16:48)
--- NOTE | 2021-05-21 17:04 | ED.BACK ---
HPI - Back Pain/Injury <Enrike Miranda PA-C - Last Filed: 05/21/21 17:27> General Chief Complaint: Back Pain/Injury Stated Complaint: backpain with spasms Source: patient Limitations: no limitations History of Present Illness HPI Narrative: Wojciech presents today with chief complaint of low back pain that is radiating down his left leg that started earlier today while he was at work. He reports that he was lifting some sheetrock and had a twinges low back. He has longstanding history of low back pain that originated during his time in the [employer]. He reports that he has had twinges over the last week but this seems to be the worse. His employer called 911 because he was not able to get up off of the ground due to the pain. His symptoms have since improved. He denies any significant fever, headache changes in bowel or bladder habits, or any other acute concerns or complaints. Related Data Previous Rx's Medication Instructions Recorded meclizine 25 mg tablet 25 mg PO TID PRN #30 tab 08/23/20 cyclobenzaprine 10 mg tablet 10 mg PO TID PRN #14 tab 11/06/20 doxycycline hyclate 100 mg tablet 100 mg PO BID #20 tab 11/06/20 ketorolac 10 mg tablet 10 mg PO Q6H PRN #14 tab 11/06/20 lidocaine 5 % topical patch 1 patch TOP DAILY #15 each 11/06/20 (Lidoderm) Allergies Allergy/AdvReac Type Severity Reaction Status Date / Time banana [BANANA] Allergy Mild VOMITING Verified 05/21/21 12:38 VIOLENTLY Review of Systems <Enrike Miranda PA-C - Last Filed: 05/21/21 17:27> Review of Systems Narrative: As per HPI Patient History <Enrike Miranda PA-C - Last Filed: 05/21/21 17:27> Medical History Finger laceration Social History Smoking Status: Unknown if ever smoked Smoking Status: Unknown if ever smoked alcohol intake frequency: holidays/special occasions only Substance Use Type: marijuana Exam <Enrike Miranda PA-C - Last Filed: 05/21/21 17:27> Narrative Exam Narrative: Exam Narrative: Const General: cooperative, healthy appearing, comfortable, no acute distress, well developed and well groomed Nutritional Appearance: Elevated BMI Orientation: alert and oriented x3 HENMT Head: normal to inspection and atraumatic Ears: hearing grossly normal bilaterally Nose: external nose normal and nares normal Face and sinus: normal facial exam Neck Neck: normal visual inspection and supple Resp Effort & Inspection: normal respiratory effort, able to speak in complete sentences, no audible wheezes, not labored, no nasal flaring and no respiratory distress Neuro General: alert, oriented x3, gait normal, tone normal and moves all extremities Cognition: normal cognition Speech: speech normal Gait: normal gait Musculoskeletal No midline spinal tenderness noted. No SI joint tenderness noted. Bilateral lower lumbar paraspinal muscle tenderness to palpation. Skin No rash or lesions noted. Psych Appearance: grossly normal and well kempt Mental Status: mental status grossly normal Speech and Movement: speech and movement normal Mood: congruent mood Affect: normal affect Initial Vital Signs Initial Vital Signs: Vital Signs Temperature 98.4 F 05/21/21 12:38 Pulse Rate 86 05/21/21 12:38 Respiratory Rate 22 05/21/21 12:38 Blood Pressure 142/93 H 05/21/21 12:38 Pulse Oximetry 97 05/21/21 12:38 <Inez Tuttle DO - Last Filed: 05/28/21 07:36> Initial Vital Signs Initial Vital Signs: Vital Signs Temperature 98.4 F 05/21/21 12:38 Pulse Rate 86 05/21/21 12:38 Respiratory Rate 22 05/21/21 12:38 Blood Pressure 142/93 H 05/21/21 12:38 Pulse Oximetry 97 05/21/21 12:38 Course <Enrike Miranda PA-C - Last Filed: 05/21/21 17:27> Orders Ordered: Discontinued Medications Ketorolac Tromethamine (Ketorolac 30 Mg/Ml Vial) 30 mg IM NOW ONE Stop: 05/21/21 16:45 Last Admin: 05/21/21 16:48 Dose: 30 mg Documented by: IJEOMA Vital Signs Vital signs: Vital Signs - 8 hr 05/21/21 12:38 05/21/21 16:38 Temperature 98.4 F 97.2 F L Pulse Rate 86 86 Respiratory Rate 22 16 Blood Pressure 142/93 H 117/81 Pulse Oximetry 97 100 <Inez Tuttle DO - Last Filed: 05/28/21 07:36> Orders Ordered: Discontinued Medications Ketorolac Tromethamine (Ketorolac 30 Mg/Ml Vial) 30 mg IM NOW ONE Stop: 05/21/21 16:45 Last Admin: 05/21/21 16:48 Dose: 30 mg Documented by: IJEOMA Vital Signs Vital signs: Vital Signs - 8 hr 05/21/21 12:38 05/21/21 16:38 Temperature 98.4 F 97.2 F L Pulse Rate 86 86 Respiratory Rate 22 16 Blood Pressure 142/93 H 117/81 Pulse Oximetry 97 100 MDM - Back Pain/Injury <Enrike Miranda PA-C - Last Filed: 05/21/21 17:27> MDM Narrative Medical decision making narrative: Differential diagnosis includes spondylolisthesis, compression fracture, cauda equina, spinal stenosis. No systemic signs of illness noted at this time. No midline spinal tenderness on palpation. He has longstanding history low back pain with mechanism of injury that is consistent with a muscular strain. Recommend that we treat for muscular strain at this time. Because this is a chronic issue, he would likely benefit from physical therapy. Recommend that he follow up with his PCP and request physical therapy referral. Return precautions discussed. Patient verbalizes understanding and agrees to plan and has no further concerns at this time. Thank you A [id number] system was used with the dictation of this note. Please disregard any spelling or grammatical errors. Discharge Plan Departure Patient Disposition: Home Clinical Impression: Acute low back pain Qualifiers: Back pain laterality: bilateral Sciatica presence: without sciatica Qualified Code(s): M54.5 - Low back pain Instructions: DI for Muscle Strain, DI for Back Spasm Activity Restrictions/Additional Instructions: It was nice to me treat this evening. Please apply warm compresses, to light range of motion and stretching. Light exercise can be quite helpful to loosen up the muscles. Nonsteroidal anti-inflammatories in addition to acetaminophen can be helpful for pain management. In the long-term, getting as fit as possible with increasing core strength as a focus will help prevent recurrent exacerbations. Please return if you experience fever, changes in bowel or bladder habits, or experience any new or worsening complaints. Thank you Enrike Miranda PAC Prescriptions: No Action meclizine 25 mg tablet 25 mg PO TID PRN (Reason: dizziness) Qty: 30 RF: 0 cyclobenzaprine 10 mg tablet 10 mg PO TID PRN (Reason: muscle spasm) Qty: 14 RF: 0 ketorolac 10 mg tablet 10 mg PO Q6H PRN (Reason: pain) Qty: 14 RF: 0 lidocaine [Lidoderm] 5 % adhesive patch,medicated 1 patch TOP DAILY Qty: 15 RF: 0 doxycycline hyclate 100 mg tablet 100 mg PO BID Qty: 20 RF: 0 Referrals: Miscellaneous,Doctor, MD [Primary Care Provider] - <Inez Tuttle DO - Last Filed: 05/28/21 07:36> Cosign ED Attending Cosignature Attestation: I was immediately available in the department for consultation. Documentation has been reviewed.
== END 2021-05-21 17:37 | disposition home or self-care (01) ==
PROVIDERS: Emergency Provider Physician Assistant
DX: M54.5 Low back pain (principal)
CPT/HCPCS: 96372; 99283; J1885

== ENCOUNTER → 2023-03-15 16:08 | Outpatient (CLI) | payer OTHER, SELFPAY | PROVIDERS: Visit Provider Nurse Practitioner Family | DX: K92.1 Melena (principal) | CPT/HCPCS: 87205 ==

== ENCOUNTER → 2023-03-20 12:56 | Outpatient (CLI) | payer OTHER, SELFPAY ==
[2023-03-20 15:36] LABS: Occult Blood 1 Negative (Negative)
[2023-03-20 15:37] LABS: Occult Blood 2 Negative (Negative); Occult Blood 3 Positive (Negative); Sample 2 time no collection time; Sample 3 time no collection time
== END ==
PROVIDERS: Referring Provider Nurse Practitioner Family; Visit Provider Nurse Practitioner Family
DX: K92.1 Melena (principal)
CPT/HCPCS: 82270; 87045; 87329; 87899

== ENCOUNTER 2024-04-08 09:49 | Emergency (ER) | payer OTHER, SELFPAY ==
[2024-04-08 10:12] VITALS: BP 172/96; PULSE 74; RESP 16; TEMP 36.3; O2SAT 99; BMI 34.9
[2024-04-08] MEDS: KETOROLAC 30 MG/ML VIAL IM (12:46)
[2024-04-08] MEDS: CYCLOBENZAPRINE 10 MG TABLET PO (12:46)
[2024-04-08 13:25] VITALS: BP 143/99; PULSE 61; RESP 17; O2SAT 97
--- NOTE | 2024-04-15 11:24 | ED.BACK ---
HPI - Back Pain/Injury <Hernan Ferris PA-C - Last Filed: 04/15/24 14:07> General Chief Complaint: Back Pain/Injury Stated Complaint: severe low back pain Time Seen by Provider: 04/08/24 11:32 Source: patient History of Present Illness HPI Narrative: 33-year-old male presents to the ED with 2 days of lower back pain after stepping accidentally into a pothole. Patient states that his pain is exacerbated with movement, and is having trouble sitting or standing without pain. Patient has tried some Tylenol with no relief. Denies urinary hesitancy, dysuria, numbness, tingling, weakness, saddle paresthesias. Related Data Previous Rx's Medication Instructions Recorded meclizine 25 mg tablet 25 mg PO TID PRN dizziness #30 tabs 08/23/20 cyclobenzaprine 10 mg tablet 10 mg PO TID PRN muscle spasm #14 11/06/20 tabs doxycycline hyclate 100 mg tablet 100 mg PO BID #20 tabs 11/06/20 ketorolac 10 mg tablet 10 mg PO Q6H PRN pain #14 tabs 11/06/20 lidocaine 5 % topical patch 1 patch topical DAILY #15 ea 11/06/20 (Lidoderm) Allergies Allergy/AdvReac Type Severity Reaction Status Date / Time banana [BANANA] Allergy Mild VOMITING Verified 04/08/24 10:12 VIOLENTLY Review of Systems <Hernan Ferris PA-C - Last Filed: 04/15/24 14:07> Constitutional Constitutional: Denies chills, Denies fatigue, Denies fever(s), Denies frequent falls, Denies lethargy and Denies weakness Eyes Eyes: Denies change in vision, Denies eye discharge, Denies irritation and Denies loss of vision ENT Ears, Nose, Mouth, and Throat: Denies change in voice, Denies dizziness, Denies neck pain, Denies sore throat and Denies throat swelling Cardiovascular Cardiovascular: Denies chest pain, Denies irregular heart rhythm, Denies lightheadedness, Denies palpitations, Denies dyspnea, Denies dyspnea on exertion and Denies orthopnea Respiratory Respiratory: Denies cough, Denies dyspnea, Denies dyspnea on exertion and Denies wheezing Gastrointestinal Gastrointestinal: Denies abdominal pain, Denies change in bowel habits, Denies diarrhea, Denies nausea and Denies vomiting Musculoskeletal Musculoskeletal: Reports back pain, Denies neck pain and Denies numbness Integumentary/Breasts Skin/Breast: Denies pruritus, Denies erythema, Denies rash and Denies wounds Neurologic Neurologic: Denies behavioral changes, Denies confusion, Denies dizziness, Denies frequent falls, Denies loss of vision, Denies numbness and Denies weakness Psychiatric Psychiatric: Denies anxiety, Denies behavioral changes, Denies confusion, Denies depression, Denies homicidal ideation and Denies suicidal ideation Endocrine Endocrine: Denies fatigue, Denies flushing and Denies palpitations Hematologic/Lymphatic Hematologic/Lymphatic: Denies easy bruising Allergic/Immunologic Allergic/Immunologic: Denies urticaria, Denies throat swelling and Denies wheezing Patient History <Hernan Ferris PA-C - Last Filed: 04/15/24 14:07> Medical History Finger laceration Social History Smoking Status: Unknown if ever smoked Smoking Status: Unknown if ever smoked alcohol intake frequency: holidays/special occasions only Substance Use Type: marijuana Exam <Hernan Ferris PA-C - Last Filed: 04/15/24 14:07> Narrative Exam Narrative: Const General:?cooperative, healthy appearing and comfortable [facility] Head:?normal to inspection Ears:?hearing grossly normal bilaterally Nose:?external nose normal Face and sinus:?normal facial exam and sinuses nontender Mouth:?oral mucosae normal Throat:?posterior oropharynx normal Eyes General:?appearance normal, both eyes and all related structures Neck Neck:?normal visual inspection and no lymphadenopathy noted Resp Effort & Inspection:?normal respiratory effort Auscultation:?clear to auscultation bilaterally Cardio Rate:?regular rate Rhythm:?regular rhythm Musculoskeletal No midline tenderness to palpation. No paraspinal tenderness to palpation. Gait is normal. Neurovascularly intact. Neuro General:?patient alert, patient awake and patient oriented x3 Initial Vital Signs Initial Vital Signs: Vital Signs Temperature 97.3 F L 04/08/24 10:12 Pulse Rate 74 04/08/24 10:12 Respiratory Rate 16 04/08/24 10:12 Blood Pressure 172/96 H 04/08/24 10:12 Pulse Oximetry 99 04/08/24 10:12 Oxygen Delivery Method Room Air 04/08/24 10:12 <Sugar Malcolm MD - Last Filed: 04/22/24 21:33> Initial Vital Signs Initial Vital Signs: Vital Signs Temperature 97.3 F L 04/08/24 10:12 Pulse Rate 74 04/08/24 10:12 Respiratory Rate 16 04/08/24 10:12 Blood Pressure 172/96 H 04/08/24 10:12 Pulse Oximetry 99 04/08/24 10:12 Oxygen Delivery Method Room Air 04/08/24 10:12 Course <Hernan Ferris PA-C - Last Filed: 04/15/24 14:07> Orders Ordered: Discontinued Medications Cyclobenzaprine HCl (Cyclobenzaprine 10 Mg Tablet) 10 mg PO NOW ONE Stop: 04/08/24 12:38 Last Admin: 04/08/24 12:46 Dose: 10 mg Documented By: TAMANNA Ketorolac Tromethamine (Ketorolac 30 Mg/Ml Vial) 30 mg IM NOW ONE Stop: 04/08/24 12:38 Last Admin: 04/08/24 12:46 Dose: 30 mg Documented By: RL <Sugar Malcolm MD - Last Filed: 04/22/24 21:33> Orders Ordered: Discontinued Medications Cyclobenzaprine HCl (Cyclobenzaprine 10 Mg Tablet) 10 mg PO NOW ONE Stop: 04/08/24 12:38 Last Admin: 04/08/24 12:46 Dose: 10 mg Documented By: TAMANNA Ketorolac Tromethamine (Ketorolac 30 Mg/Ml Vial) 30 mg IM NOW ONE Stop: 04/08/24 12:38 Last Admin: 04/08/24 12:46 Dose: 30 mg Documented By: TAMANNA MDM - Back Pain/Injury <Hernan Ferris PA-C - Last Filed: 04/15/24 14:07> MDM Narrative Medical decision making narrative: 33-year-old male presents to the ED with 2 days of lower back pain after stepping accidentally into a pothole. Physical exam is reassuring for no midline or paraspinal tenderness to palpation. No red flag symptoms. No indication for imaging at this time. Patient's symptoms are most consistent with a musculoskeletal sprain/strain. Patient was given a dose of ketorolac and Flexeril with moderate relief. Patient prescribed pain medications to use at home. Recommend follow-up with PCP as soon as possible. ED return precautions discussed with patient. Patient verbalized understanding. Medical records reviewed: Yes Discharge Plan Departure Patient Disposition: Home Clinical Impression: Acute back pain Instructions: DI for Back Strain or Sprain Activity Restrictions/Additional Instructions: You were evaluated in the ED today for lower back pain. Your symptoms are most consistent with a musculoskeletal sprain/strain or a disc injury. You were given a dose of ketorolac in the ED. You are being prescribed some pain medications to take for the next few days. Please refrain from driving or operating machinery when taking these medications since they can make you drowsy. Please follow-up with your PCP as soon as possible. Return to the ED if you have worsening symptoms, numbness, tingling, weakness, urinary difficulties. Prescriptions: No Action meclizine 25 mg tablet 25 mg PO TID PRN (Reason: dizziness) Qty: 30 0RF cyclobenzaprine 10 mg tablet 10 mg PO TID PRN (Reason: muscle spasm) Qty: 14 0RF ketorolac 10 mg tablet 10 mg PO Q6H PRN (Reason: pain) Qty: 14 0RF lidocaine [Lidoderm] 5 % adhesive patch,medicated 1 patch TOP DAILY Qty: 15 0RF Rx Instructions: leave on most painful area for 12 hrs doxycycline hyclate 100 mg tablet 100 mg PO BID Qty: 20 0RF Referrals: Miscellaneous,DoctorMD [Primary Care Provider] - Stand Alone Forms: Patient Portal/API, Work Release Note ED Sign-out <Sugar Malcolm MD - Last Filed: 04/22/24 21:33> Cosign ED Attending Claudette Attestation: I was immediately available in the department for consultation throughout this patient's visit. Sugar Malcolm MD
== END 2024-04-08 13:25 | disposition home or self-care (01) ==
PROVIDERS: Emergency Provider Student in an Organized Health Care Education/Training Program
DX: M54.50 Low back pain, unspecified (principal); X50.1XXA Overexertion from prolonged static or awkward postures, initial encounter
CPT/HCPCS: 96372; 99283; J1885